=== PATIENT | female | born 2000 | race Caucasian/White ===

== ENCOUNTER → 2021-10-19 | Outpatient (CLI) | payer BC ==
[2021-10-19 10:10] VITALS: BP 95/71
--- NOTE | 2021-10-19 12:20 | Cardiology Stress Test Report ---
Stress Test Report Date of Procedure/Referring: Date of Procedure: October 19, 2021 PCP Garcia Mendes MD Admitting Physician Lauren Troncoso DO Indications: CP Baseline Heart Rate: 74 Baseline Blood Pressure: Blood Pressure Systolic: 95 Blood Pressure Diastolic: 71 Baseline EKG: Baseline EKG: RBBB Summary/Conclusion: Summary: In summary, the patient started exercising with a baseline heart rate, blood pressure and EKG mentioned above Patient was able to exercise for a total of 11 minutes on Juan protocol, METs 12.1 Maximum heart rate 181 Maximum blood pressure 135/77 Stress EKG, Minimal nondiagnostic changes Recovery EKG , Return to baseline Conclusion: 1. Good exercise tolerance for a total of 11 minutes on Juan protocol, 12.1 METs, achieving 90 percent of maximum expected heart rate 2. Baseline right bundle branch block with minimal nondiagnostic EKG changes with exercise returned to baseline during recovery 3. Patient had frequent PVCs and ventricular couplets early in recovery persisted for 5 minutes in recovery then resolved Copy Copies To 1: LAUREN TRONCOSO BASHAR J MD October 19, 2021 12:20
== END ==
LOC: CARD 09:35
PROVIDERS: ATTEND Internal Medicine Cardiovascular Disease
DX: R07.9 Chest pain, unspecified (principal); R00.2 Palpitations
CPT/HCPCS: 93017

== ENCOUNTER 2021-10-25 11:30 | Outpatient (RCR) | payer BC | END 2021-11-01 | disposition home or self-care (01) | LOC: CARD 11:30 | PROVIDERS: ATTEND Internal Medicine Cardiovascular Disease | DX: I49.9 Cardiac arrhythmia, unspecified (principal) | CPT/HCPCS: 93306 ==